=== PATIENT | female | born 1985 | race Caucasian/White ===

== ENCOUNTER 2016-11-14 18:47 | Emergency (ER) | payer BC ==
[~2016-11-14] VITALS: Ht 162.6 cm; Wt 63.6 kg
[2016-11-14 18:52] VITALS: BP 120/84
== END 2016-11-14 20:08 | disposition home or self-care (01) ==
LOC: EME 18:47
DX: S43.102A Unspecified dislocation of left acromioclavicular joint, initial encounter (principal); S43.402A Unspecified sprain of left shoulder joint, initial encounter; S63.617A Unspecified sprain of left little finger, initial encounter; S50.311A Abrasion of right elbow, initial encounter; V18.0XXA Pedal cycle driver injured in noncollision transport accident in nontraffic accident, initial encounter; Y93.55 Activity, bike riding; Z79.01 Long term (current) use of anticoagulants
CPT/HCPCS: 73030; 73130; 99281; 99284